=== PATIENT | female | born 2005 | race Caucasian/White ===

== ENCOUNTER 2025-07-23 08:11 | Outpatient (AMB) | payer BC, SELFPAY ==
--- OUTSIDE RECORDS SUMMARY | 2025-07-23 08:24 | XMS_ITS ---
Author Name [facility] Organization Unknown Care Team Organization Name Specialty Phone Email Start Date End Da te [facility] Primary Care 10/06/2022 07/17/20 24
--- OUTSIDE RECORDS SUMMARY | 2025-07-23 08:24 | XMS_ITS | Clinical Summary ---
Author Organization [facility] [address] [facility] lding Address [address] [place] [address] Phone Care Team Providers Care Earth Auger Operator Name Role Phone Trish Rosado MD Primary Care Provider Allergies Active Allergy Reactions Criticality Noted Date Comments Codeine Headache 08/22/2009 Levonorgestrel-Ethinyl Estrad 2008 Medications ALBUTEROL INHL Inhale into the lungs. Active HYDROXYZINE PAMOATE ORAL Take by mouth. Ac tive buPROPion SR (WELLBUTRIN SR) 200 mg 12 hr tablet Take 1 tablet (200 mg total) by mouth 2 (two) times a day. Active cetirizine (ZyrTEC) 10 mg capsule Take by mouth. Activ e clindamycin phosphate 1 % gel, once daily Apply topically 2 times daily. Active fluticasone propionate (FLONASE) 50 mcg/actuation nasal spray 2 Sprays by Each Nare route daily. Active desogestreL-eth inyl estradioL (Enskyce) 0.15-0.03 mg per tablet Take 1 tablet by mouth 1 (one) time each day. 84 tablet 4 5 04/27/20 26 Active Active Problems Problem Noted Date Diagnosed Date Seasonal allergies 01/05/2025 ARTURO (generalized anxiety disorder) 02/03/2018 Thalassemia minor 12/05/2010 Encounters Date Type Department Care Team Description 04/27/2025 11:15 AM EDT Office Visit Obstetrics and Gynecology - [place] [address] [place] [id number] Mell Roman, [facility] Encounter for gynecological examination without abnormal finding (Primary Dx) from Last 3 Months Immunizations Name Administration Dates Next Due DTaP (Infanrix) 6wks to less than 7yo ,03/02/2005,03/28/2004,01/29,2003 DOdU-LPZ-GKA (Pentacel) 2mo to less than 5yo 03/02/2005,03/28/2004,01/30/2004,12/04 HPV, Quadrivalent 05/22/2015,02/19/2015,12/07/19 15 Hepatitis A Pediatric (Havri x; Vaqta) 12mo to less than 19yo 07/17/2020,01/15/2020 Hepatitis B Pediatric (Enger ix B; Recombivax HB) to less than 20 yo 07/21/2004,2003,2003 IPV Inactivated polio (Ipol) 6wks and older 10/19/2007,07/21/2004,01/30/2004,12/04 Influenza trivalent, 0.5mL, preservative free (Fluarix; FluLaval; Fluzone) ages 6mo and older (Afluria) 3 years and older 08/09/2013,11/15/2006 Influenza trivalent, with pr eservative (Fluzone; Afluria) 6mo and older 10/23/2020,09/15/2012,09/07/2011,09/11,08/22/2009,09/13/2008,09/08/2007 ,11/09/2005,10/05/2005,10/06/2004 Influenza, live, intranasal, trivalent (FluMist) 2yo to less than 50yo 10/05/2014 MMR, measles mumps and rubel la Live (Priorix; M-M-R II) 12mo and older 10/19/2007,03/02/2005 Meningococcal MCV4P 01/20/2021,12/07/2014 Pneumococcal Conjugate Vacci ne, 7 Valent 10/06/2004,01/30/2004,2003 Tdap Tetanus diptheria acell ular pertussis (Boostrix; Adacel) 7yo and older 12/07/2014 Varicella live (Varivax) 12m o and older 10/19/2007,10/06/2004 Surgical History Surgery Date Site/Laterality Comments OTHER SURGICAL HISTORY PROCEDURE: DENIES PREVIOUS SURGERY Medical History Medical History Date Comments Other thalassemia (CMS/HCC V24) DX:Other thalassemia (HCC); COMMENT: THAL MINOR Atopic dermatitis DX:Atopic derm atitis Seasonal allergies DX:Seasonal a llergies Family History Medical History Relation Name Comments Other: mitral valve regurgitation Father mitral valve prolaps e Breast cancer Grandparent GGMA maternal great grandmother Other cancer Maternal Grandfather Other: prostate cancer Maternal Grandfather Other cancer Maternal Grandmother Other: DM Maternal Grandmother Other: colon cancer Paternal Grandfather survivor of stage 4 colon cancer Other: pacemaker Paternal Grandfather Prostate cancer Paternal Grandfather Other: DM Paternal Grandmother Ovarian cancer Neg Hx Pancreatic cancer Neg Hx Uterine cancer Neg Hx Relation Name Status Comments Father Alive 1963, precancer ous colon polyps age 47, nose bleeds Father's side colon cancer i n men, maybe onset mid-50s Grandparent GGMA Alive Maternal Grandfather Alive OA, pro state [place] Maternal Grandmother Alive OA, DM Mother Alive 1966-OA, asthma Paternal Grandfather Alive stage I II colon CA age 67, in remission Paternal Grandmother Alive A&W, lo ts of nose bleeds Sister Alive -JESUS T DAYA MINOR Social History Tobacco Use Types Packs/Day Years Used Date Smoking Tobacco: Never Smokeless Tobacco: Never Alcohol Use Standard Drinks/Week Comments Yes 0 (1 standard drink = 0.6 oz pur e alcohol) Comments Unknown Sex and Gender Information Value Date Recorded Sex Assigned at Not on file Legal Sex Female 5:10 AM EST Gender Identity Not on file Sexual Orientation Not on file Obstetrics History Para Term AB IAB SAB Ectopic Multiple Livin g Live Births 0 0 0 0 0 0 0 0 0 0 0 Last Filed Vital Signs Vital Sign Reading Time Taken Comments Blood Pressure 120/86 04/27/2025 11:20 AM EDT Pulse 71 04/27/2025 11:20 AM EDT Temperature - - Respiratory Rate - - Oxygen Saturation - - Inhaled Oxygen Concentration - - Weight 60.8 kg (134 lb) 04/27/2025 11:20 AM EDT Height 157.5 cm (5' 2 ) 04/27/2025 11:20 AM EDT Body Mass Index 24.51 04/27/2025 11:20 AM EDT Plan of Treatment Health Maintenance Due Date Last Done Comments Pneumococcal Vaccine: Pediatrics (0 to 5 Years) and At-Risk Patients (6 to 49 Years) (1 of 2 - PPSV23) 12/01/2004 10/06/2004, 01/30/2004, 2003 Meningococcal B Vaccine (1 of 2 - Standard) 2019 HIV Screening 11/01/2022 Hepatitis C Screening 11/01/2022 Social Influencers of Health Screening 11/01/2022 COVID-19 Vaccine ( season) 2024 04/07/2022, 08/06/2021, 07/16/2021 Depression Screening 11/29/2024 Influenza Vaccine (#1) 2025 , 10/05/2014, 08/09/2013, Additional history exists Annual Well Child Visit (3-21 years old) 04/27/2026 04/27/2025, 04/26/2024, 02/26/2023, Additional history exists Gonorrhea/Chlamydia Screening 04/27/2026 04/27/2025, 04/26/2024 Cervical Cancer Screening: Pap Smear 04/27/2028 04/27/2025 DTaP,Tdap,and Td Vaccines (8 - Td or Tdap) 04/16/2035 04/16/2025, 12/07/2014, 10/19/2007, Additional history exists Hepatitis B Vaccines Completed 07/21/2004, 2003, 2003 HIB Vaccines Completed 03/02/2005, 0 02/2005, 03/28/2004, Additional history exists IPV Vaccines Completed 10/19/2007, 0 02/2005, 07/21/2004, Additional history exists MMR Vaccines Completed 10/19/2007, 03/02/2005 Varicella Vaccines Completed 10/19/2007, 10/06/2004 HPV Vaccines Completed 05/22/2015, 01/28, 12/07/2014 Hepatitis A Vaccines Completed 07/17/2020, 01/15/20 20 Meningococcal ACWY Vaccine Completed 01/20/2021, RSV Immunization Patients Under 20 months Aged Out No longer eligible based on patient's age to complete this topic Procedures Procedure Name Priority Date/Time Associated Diagnosis Comments CHLAMYDIA TRACHOMATIS AND NEISSERIA GONORRHOEAE BY KISHOR THINPREP Routine 04/27/2025 11:44 AM EDT Encounter for gynecological examination without abnormal finding PAP SMEAR Routine 04/27/2025 11:44 AM EDT Encounter for gynecological examination without abnormal finding TRICHOMONAS VAGINALIS PCR Routine 04/27/2025 11:44 AM EDT Encounter for gynecological examination without abnormal finding from Last 3 Months Results * Chlamydia trachomatis and neisseria gonorrhoeae by kishor thinprep (04/27/2025 11:44 AM EDT) N. gonorrhoeae, RNA Probe Negative Negative LAB MICROBIOLOGY METHOD 04/30/2025 1:49 PM EDT [facility] Chlamydia, RNA Probe Negative Negative LAB MICROBIOLOGY METHOD 04/30/2025 1:49 PM EDT [facility] Broom Cervix uteri structure / Unknown 04/27/2025 11:44 AM EDT 04/30/2025 6:38 AM EDT Mell HONG LAB CYTOLOGY ORDERABLES Fin al Result [facility] [address] [place] [address], * Trichomonas vaginalis molecular study (04/27/2025 11:44 AM EDT) Trichomonas vaginalis Negative Negative LAB MICROBIOLOGY METHOD 04/30/2025 2:05 PM EDT [facility] Broom Cervix uteri structure / Unknown 04/27/2025 11:44 AM EDT 04/30/2025 6:38 AM EDT Mell Roman [facility] BLOOD ORDERABLES Final Result Performing Organization Address City/[facility]/ZIP Co de Phone Number [facility] [address] [place] [address], * Pap Smear (04/27/2025 11:44 AM EDT) Interpretation Negative for intraepithelial lesion or malignancy 05/01/2025 3:57 PM EDT [facility] General Categorization Negative 05/01/2025 3:57 PM EDT [facility] LMP 03/31/2025 05/01/2025 3:57 PM EDT [facility] Specimen Adequacy Satisfactory for evaluation, endocervical/marks sformation zone component present 05/01/2025 3:57 PM EDT [facility] Pap Methodology Liquid Based Pap Test 05/01/2025 3:57 PM EDT [facility] Disclaimer The Pap test is a screening test which carries an inherent false negative rate. These test results should be correlated with the patient's clinical findings and history. This Pap test was processed using an automated screening system. Technical cytopathology services provided by [facility], at [address] [place] [id number] (CLIA # [id number]/Laurel Mathias MD, Project Scientist.) 05/01/2025 3:57 PM EDT [facility] Console Pap Interpretation Reported 05/01/2025 3:57 PM EDT [facility] Broom Cervix uteri structure / Unknown 04/27/2025 11:44 AM EDT 04/27/2025 11:44 AM EDT us Mell Roman [facility] CYTOLOGY ORDERABLES Fin al Result [facility] [address] [place] [address], [place] [phone] from Last 3 Months Insurance [facility] Care Teams Earth Auger Operator Relationship Specialty Start Date End Date Trish Rosado MD [address] [address] PCP - General Internal Medicine 04/26/25
== END 2025-07-23 08:43 | disposition home or self-care (01) ==
LOC: HO.HMGAL 08:11
PROVIDERS: PCP Family Medicine; Visit Provider Registered Nurse Emergency
DX: J30.89 Other allergic rhinitis (principal)
CPT/HCPCS: 95117; 95165

== ENCOUNTER 2025-08-13 10:58 | Outpatient (AMB) | payer OTHER, SELFPAY ==
--- OUTSIDE RECORDS SUMMARY | 2025-08-13 14:44 | XMS_ITS | Encounter Summary ---
Author Organization [facility] Address [address] [place] [address] [place] [phone] Phone Care Team Providers Care Carder Blankets Name Role Phone Trish Rosado MD Primary Care Provid er Bhavin Figueroa MD Primary Care Provider Trish Rosado MD Primary Care Provid er Encounter Details Date Type Department Care Team (Late st Contact Info) Description 04/28/2022 Transcribe Orders [facility] [address] [place] [address] Joel Morales MD [address] [place] [id number] [email or web address] Social History Tobacco Use Types Packs/Day Years Used Date Smoking Tobacco: Never Smokeless Tobacco: Never Alcohol Use Standard Drinks/Week Comments Never 0 (1 standard drink = 0.6 oz pur e alcohol) Comments Unknown Sex and Gender Information Value Date Recorded Sex Assigned at Not on file Legal Sex Female 9:05 AM EDT Gender Identity Not on file Sexual Orientation Not on file documented as of this encounter Plan of Treatment Not on file documented as of this encounter Visit Diagnoses Not on filedocumented in this encounter Additional Health Concerns Infection Onset Date Last Indicated Resolved Time CoV-Risk 09/04/2024 09/07/2024 09/18/2024 1:21 AM EDT documented as of this encounter Care Teams Carder Blankets Relationship Specialty Start Date End Date Trish Rosado MD [address] [address] PCP - General Internal Medicine 07/03/21 08/23/22 Bhavin Figueroa MD [address] [place] [address] PCP - General Family Medicine 08/24/22 09/06/24 Trish Rosado MD [address] [address] PCP - General Internal Medicine 09/07/24 documented as of this encounter Additional Source Comments The information contained in this document represents components of the legal health record. It is not the complete legal health record.[facility]
--- OUTSIDE RECORDS SUMMARY | 2025-08-13 14:44 | XMS_ITS | Encounter Summary ---
Author Organization [facility] Address [address] [place] [address] [place] [phone] Phone Care Team Providers Care Electrical Lineworker Name Role Phone Trish Rosado MD Primary Care Provid er Bhavin Figueroa MD Primary Care Provider Trish Rosado MD Primary Care Provid er Encounter Details Date Type Department Care Team (Late st Contact Info) Description 02/05/2022 Transcribe Orders [facility] [address] [place] [address] Joel Morales MD [address] [place] [phone] [email or web address] Social History Tobacco Use Types Packs/Day [...] documented as of this encounter Care Teams Electrical Lineworker Relationship Specialty Start Date End Date Trish Rosado MD [address] [address] PCP - General Internal Medicine 07/03/21 08/23/22 Bhavin Figueroa MD [address] [place] [address] PCP - General Family Medicine 08/24/22 09/06/24 Trish Rosado MD [address] [address] PCP - General Internal Medicine 09/07/24 documented as of this encounter Additional Source Comments The information contained in this document represents components of the legal health record. It is not the complete legal health record.[facility]
--- OUTSIDE RECORDS SUMMARY | 2025-08-13 14:44 | XMS_ITS | Clinical Summary ---
Author Organization [facility] Address [address] [place] [phone] Phone Care Team Providers Care Heel Seat Fitter Name Role Phone Trish Rosado MD Primary Care Provid er Allergies Active Allergy Reactions Criticality Noted Date Comments Codeine 07/03/2021 Other Reaction(s): vomit Medications cetirizine (ZYRTEC) 10 mg capsule Zyrtec 10mg Active desogestreL-eth inyl estradioL (APRI) 0.15-0.03 mg per tablet daily. Active albuterol 90 mcg/actuation inhaler albuterol sulfate HFA 90 mcg/actuation aerosol inhaler 2 puffs with a spacer 15 minutes before exericse and every 4 hours as needed Active AEROCHAMBER PLUS FLOW-VU Spcr 2 Active fluticasone propionate (FLONASE) 50 mcg/actuation nasal spray daily. Active clindamycin phosphate 1 % glqd APPLY 1 APPLICATION TOPICALLY 2 TIMES A DAY,APPLY A THIN FILM TO AFFECTED AREA AFTER WASHING 4 Active WELLBUTRIN SR 200 mg SR 12 hr tablet Active HYDROXYZINE HCL ORAL 0 Refills, Maintenance, 02/17/24 13:35:00 EDT, Partial fill upon patient request if the prescription is for a schedule II opioid drug. 4 Active Active Problems Problem Noted Date Diagnosed Date Major depressive disorder in remission 4 Mild intermittent asthma 09/04/2024 Seasonal allergies 09/04/2024 Exercise-induced asthma 07/06/2022 Immunizations Immunization Administration Dates Next Due DTaP 10/19/2007, 5,03/28/2004,01/29,2003 HPV,quadrivalent 05/22/2015,02/19/2015, 5 Hepatitis A, ped/adol, 2 dose 07/17/2020, 020 Hepatitis B 07/21/2004,2003,2003 Hib,HbOC 03/02/2005, 4,01/30/2004,12/04 INFLUENZA, SPLIT VIRUS, TRIVALENT PF 08/09/2013, 11/15/2006 INFLUENZA, SPLIT VIRUS, TRIV ALENT W/ PRESERVATIVE IM 09/15/2012,09/07/2011,09/11/2010,08/22,09/13/2008,09/08/2007 IPV 10/19/2007, 4,01/30/2004,12/04 Influenza Quadrivalent Prese rvative Free IM 10/23/2020 Influenza quadrivalent nasal 10/05/2014 MMR 10/19/2007,03/02/2005 Meningococcal MCV4P 01/20/2021,12/07/2014 Pneumococcal conjugate, PCV 7 10/06/2004, 004,2003 Tdap 12/07/2014 Varicella 10/19/2007,10/06/2004 Social History Tobacco Use Types Packs/Day Years Used Date Smoking Tobacco: Never Smokeless Tobacco: Never Tobacco Cessation:Counseling Given: Not Answered Alcohol Use Standard Drinks/Week Comments Never 0 (1 standard drink = 0.6 oz pur e alcohol) Education Answer Date Recorded Are you interested in more education? Not on adelita e 03/27/2023 Are you concerned about learning? Not on file 03/27/2023 No 03/27/2023 No 03/27/2023 Digital Access Answer Date Recorded No 04/25/2023 No 04/25/2023 Reliable internet access at home? Not on file 04/25/2023 Device with a working camera? Not on file Intimate Partner Violence Answer Date R ecorded Are you denied basic needs s uch as food, clothing, or medical care? No 09/07/2024 In the past 12 months have y ou been in a relationship with a person who hurts, threatens, or tries to control you? No 09/07/2024 Are you denied basic needs s uch as food, clothing, or medical care? No 09/07/2024 In the past 12 months have y ou been in a relationship with a person who hurts, threatens, or tries to control you? No 09/07/2024 Comments Unknown Sex and Gender Information Value Date Recorded Sex Assigned at Not on file Legal Sex Female 9:05 AM EDT Gender Identity Not on file Sexual Orientation Not on file Last Filed Vital Signs Vital Sign Reading Time Taken Comments Blood Pressure 133/86 09/07/2024 10:31 PM EDT Pulse 100 09/07/2024 10:31 PM EDT Temperature 37.1 C (98.7 F) 09/07/2024 10:31 PM EDT Respiratory Rate 18 09/07/2024 10:31 PM EDT Oxygen Saturation 100% 09/07/2024 10:31 PM EDT Inhaled Oxygen Concentration - - Weight 58.1 kg (128 lb) 09/07/2024 10:31 PM EDT Height 157.5 cm (5' 2 ) 09/07/2024 10:31 PM EDT Body Mass Index 23.41 09/07/2024 10:31 PM EDT Plan of Treatment Health Maintenance Due Date Last Done Comments PEDIATRIC ASTHMA CONTROL EZRA T (ACT) 2007 DEPRESSION SCREENING 2015 CHLAMYDIA SCREENING 2019 MENINGOCOCCAL VACCINES (B) ( 1 of 2 - Standard) 2019 ADOLESCENT UNIVERSAL LIPID SCREENING 2020 HEPATITIS C SCREENING 2021 HIV ONE-TIME SCREENING (18-6 5 YEARS) 2021 PNEUMOCOCCAL VACCINES (0-49 years) (1 of 2 - PCV) 2022 10/06/2004, 01/30/2004, 2003 PAP SMEAR 2024 Adult Td,Tdap Booster 12/07/2024 12/07/2014 COMBINED DTaP,Tdap,Td (7 - T d or Tdap) 12/07/2024 12/07/2014, 10/19/2007, 03/02/2005, Additional history exists INFLUENZA VACCINE (#1) 2025 0, 10/05/2014, 08/09/2013, Additional history exists COVID-19 VACCINE (2024-12 6 season) 2025 04/07/2022, 08/06/2021, 07/16/2021 SMOKING Hx and SMOKELESS TOB ACCO SCREENING 09/04/2025 09/04/2024 HIB VACCINES Completed 03/02/2005, 03/01, 01/30/2004, Additional history exists MMR VACCINES Completed 10/19/2007, 03/02/2005 HPV VACCINES Completed 05/22/2015, 01/28, 12/07/2014 HEPATITIS A VACCINES Completed 07/17/2020, 01/15/20 20 MENINGOCOCCAL VACCINES (ACWY) Completed 01/20/2021, 12/07/2014 Medical Devices Not on file Insurance Care Teams Heel Seat Fitter Relationship Specialty Start Date End [facility] [address] [address] PCP - General Internal Medicine 09/07/24 Additional Source Comments The information contained in this document represents components of the legal health record. It is not the complete legal health record.[facility]
--- OUTSIDE RECORDS SUMMARY | 2025-08-13 14:44 | XMS_ITS | Clinical Summary ---
Author Organization [facility] [address] [facility] l[address] Address [address] [place] [address] Phone Care Team Providers Care Employment Office Clerk Name Role Phone Trish Rosado MD Primary [...] (generalized anxiety disorder) 02/03/2018 Thalassemia minor 12/05/2010 Immunizations Name Administration Dates Next Due DTaP (Infanrix) 6wks to less than 7yo ,03/02/2005,03/28/2004,01/29,2003 [id number]-COP-QSJ (Pentacel) 2mo to less than 5yo 03/02/2005,03/28/2004,01/30/2004,12/04 [...] 11/01/2022 Social Influencers of Health Screening 11/01/2022 Depression Screening 11/29/2024 COVID-19 Vaccine ( season) 2025 04/07/2022, 08/06/2021, 07/16/2021 Influenza Vaccine (#1) 2025 , 10/05/2014, 08/09/2013, Additional history exists Annual Well Child Visit (3-21 years old) 04/27/2026 04/27/2025, 04/26/2024, 02/26/2023, Additional history exists Gonorrhea/Chlamydia Screening 04/27/2026 04/27/2025, 04/26/2024 Cervical Cancer Screening: Pap Smear 04/27/2028 04/27/2025 DTaP,Tdap,and Td Vaccines (8 - Td or Tdap) 04/16/2035 04/16/2025, 12/07/2014, 10/19/2007, Additional history exists Hepatitis B Vaccines Completed 07/21/2004, 2003, 2003 HIB Vaccines Completed 03/02/2005, 02/2005, 03/28/2004, Additional history exists IPV Vaccines Completed 10/19/2007, 02/2005, 07/21/2004, Additional history exists MMR Vaccines Completed 10/19/2007, 03/02/2005 Varicella Vaccines Completed 10/19/2007, 10/06/2004 HPV Vaccines Completed 05/22/2015, 01/28, 12/07/2014 Hepatitis A Vaccines Completed 07/17/2020, 01/15/20 20 Meningococcal ACWY Vaccine Completed 01/20/2021, RSV Immunization Patients Under 20 months Aged Out No longer eligible based on patient's age to complete this topic Procedures Procedure Name Priority Date/Time Associated Diagnosis Comments PAP SMEAR Routine 04/27/2025 11:44 AM EDT Encounter for gynecological examination without abnormal finding CHLAMYDIA TRACHOMATIS AND NEISSERIA GONORRHOEAE BY TMA, THINPREP Routine 04/27/2025 11:44 AM EDT Encounter for gynecological examination without abnormal finding from Last 3 Months or Most Recently Relevant to Health Maintenance Results * Chlamydia trachomatis and neisseria gonorrhoeae by tma, thinprep (04/27/2025 11:44 AM EDT) N. gonorrhoeae, RNA Probe Negative Negative LAB MICROBIOLOGY METHOD 04/30/2025 1:49 PM EDT [facility] Chlamydia, RNA Probe Negative Negative LAB MICROBIOLOGY METHOD 04/30/2025 1:49 PM EDT [facility] Broom Cervix uteri structure / Unknown 04/27/2025 11:44 AM EDT 04/30/2025 6:38 AM EDT Mell HONG LAB CYTOLOGY ORDERABLES Fin al Result [facility] [address] [place] [address], [place] [phone] * Pap Smear (04/27/2025 11:44 AM EDT) Interpretation Negative for intraepithelial lesion or malignancy 05/01/2025 3:57 PM EDT [facility] General Categorization Negative 05/01/2025 3:57 PM EDT [facility] LMP 03/31/2025 05/01/2025 3:57 PM EDT [facility] Specimen Adequacy Satisfactory for evaluation, endocervical/marks sformation zone component present 05/01/2025 3:57 PM EDT [facility] Pap Methodology Liquid Based Pap Test 05/01/2025 3:57 PM EDT [facility] Disclaimer The Pap test is a screening test which carries an inherent false negative rate. These test results should be correlated with the patient's clinical findings and history. This Pap test was processed using an automated screening system. Technical cytopathology services provided by [facility], at [address] [place] [address] (IA # [id number]/Laurel Mathias MD, Hyperbaric Nurse.) 05/01/2025 3:57 PM EDT [facility] Console Pap Interpretation Reported 05/01/2025 3:57 PM EDT [facility] Broom Cervix uteri structure / Unknown 04/27/2025 11:44 AM EDT 04/27/2025 11:44 AM EDT Mell Roman [facility] CYTOLOGY ORDERABLES Fin al Result [facility] [address] [place] [address], from Last 3 Months or Most Recently Relevant to Health Maintenance Insurance [facility] Care Teams Employment Office Clerk Relationship Specialty Start Date End Date Trish Rosado MD [address] [address] PCP - General Internal Medicine 04/26/25
== END 2025-08-13 11:23 | disposition home or self-care (01) ==
LOC: HO.HMGAL 10:58
PROVIDERS: PCP Family Medicine; Visit Provider Registered Nurse Emergency
DX: J30.89 Other allergic rhinitis (principal)
CPT/HCPCS: 95117; 95165

== ENCOUNTER 2025-10-01 10:20 | Outpatient (AMB) | payer OTHER, SELFPAY ==
--- OUTSIDE RECORDS SUMMARY | 2025-10-01 12:23 | XMS_ITS | Clinical Summary ---
Author Organization [facility] Address [address] [place] [phone] Phone Care Team Providers Care Small Package And Bundle Sorter Clerk Name Role Phone Trish Rosado MD [...] EZRA T (ACT) 2007 DEPRESSION SCREENING 2015 SMOKING Hx and SMOKELESS TOB ACCO SCREENING 2016 CHLAMYDIA SCREENING 2019 MENINGOCOCCAL VACCINES (B) ( [...] Additional history exists INFLUENZA VACCINE (#1) 2025 , 10/05/2014, 08/09/2013, Additional history exists COVID-19 VACCINE (2024- 6 season) 2025 04/07/2022, 08/06/2021, 07/16/2021 HIB VACCINES Completed 03/02/2005, 03/01, 01/30/2004, Additional history exists MMR VACCINES Completed 10/19/2007, 03/02/2005 HPV VACCINES Completed 05/22/2015, 01/28, 12/07/2014 HEPATITIS A VACCINES Completed 07/17/2020, 01/15/20 20 MENINGOCOCCAL VACCINES (ACWY) Completed 01/20/2021, 12/07/2014 Medical Devices Not on file Insurance Member Subscriber Plan / Payer (Ef fective 2012-Present) Name:Erica Plaza Relation to Subscriber:Child Name:DONNA PLAZA Date of :1967 (Home) Address: [address] [place] [address] Payer ID:[id number] (NAIC) Type:O Address: [place] [id number] [place] [id number] Care Teams Small Package And Bundle Sorter Clerk Relationship Specialty Start Date End Date [facility] [address] [address] PCP - General Internal Medicine 09/07/24 Additional Source Comments The information contained in this document represents components of the legal health record. It is not the complete legal health record.[facility]
--- OUTSIDE RECORDS SUMMARY | 2025-10-01 12:23 | XMS_ITS | Encounter Summary ---
Author Organization [facility] Address [address] [place] [address] [place] [phone] Phone Care Team Providers Care Clerk Telegraph Service Name Role Phone Trish Rosado MD Primary Care Provid er Bhavin Figueroa MD Primary Care Provider Trish Rosado MD Primary Care Provid er Encounter Details Date Type Department Care Team (Late st Contact Info) Description 04/28/2022 Transcribe Orders [facility] [address] [place] [address] Joel Morales MD [address] [place] [phone] [email or web address] Social History Tobacco Use Types Packs/Day Years [...] documented as of this encounter Care Teams Clerk Telegraph Service Relationship Specialty Start Date End Date Trish Rosado MD [address] [address] PCP - General Internal Medicine 07/03/21 08/23/22 Bhavin Figueroa MD [address] [address] PCP - General Family Medicine 08/24/22 09/06/24 Trish Rosado MD [address] [address] PCP - General Internal Medicine 09/07/24 documented as of this encounter Additional Source Comments The information contained in this document represents components of the legal health record. It is not the complete legal health record.[facility]
--- OUTSIDE RECORDS SUMMARY | 2025-10-01 12:24 | XMS_ITS | Encounter Summary ---
Author Organization [facility] Address [address] [place] [address] [place] [phone] Phone Care Team Providers Care Tankerman Name Role Phone Trish Rosado MD Primary Care Provid er Bhavin Figueroa MD Primary Care Provider Trish Rosado MD Primary Care Provid er Encounter Details Date Type Department Care Team (Late st Contact Info) Description 02/05/2022 Transcribe Orders [facility] [address] [place] [address] Joel Morales MD [address] [place] [phone] [email or web address] Social History Tobacco Use Types Packs/Day [...] documented as of this encounter Care Teams Tankerman Relationship Specialty Start Date End Date Trish Rosado MD [address] [address] PCP - General Internal Medicine 07/03/21 08/23/22 Bhavin Figueroa MD [address] [address] PCP - General Family Medicine 08/24/22 09/06/24 Trish Rosado MD [address] [address] PCP - General Internal Medicine 09/07/24 documented as of this encounter Additional Source Comments The information contained in this document represents components of the legal health record. It is not the complete legal health record.[facility]
== END 2025-10-01 10:21 | disposition home or self-care (01) ==
LOC: HO.HMGAL 10:20
PROVIDERS: Visit Provider Registered Nurse Emergency
DX: J30.89 Other allergic rhinitis (principal)
CPT/HCPCS: 95117; 95165